=== PATIENT | male | born 1985 | race Caucasian/White ===

== ENCOUNTER 2017-08-28 09:07 | Emergency (ER) ==
[2017-08-28 09:10] VITALS: BP 146/88; TEMP 99.6; BMI 38.5
--- NOTE | 2017-08-28 09:58 | ED.PDOC ---
General ED Provider: Dr. ADRY MARTIN Chief Complaint: Sore Throat Stated Complaint: Sore Throat. Hx. PATIENT STATES THAT FRIDAY EVENING HE DEVELOPED A SORE THROAT WELL A COUGH. PATIENT STATES THAT SINCE THAT THEN HE FEELS IF HIS THROAT HAS BECOME PROGRESSIVELY WORSENED AND MORE SORE. STATED HE AWAKENED THIS MORNING WITH A CHANGE IN VOICE. HE STATED HE HAS NOT TAKEN MEDICATION FOR SYMPTOMS THIS MORNING. Time Seen by Physician: 10:00 Mode of Arrival: Walk-In Information Source: Patient Exam Limitations: No limitations Nursing and Triage Documentation Reviewed and Agree: Yes Reviewed sepsis parameters & appropriate labs ordered?: Yes System Inflammatory Response Syndrome: Not Applicable Sepsis Protocol: For patient's 13 years and over: Temp is 96.8 and below OR 101 and greater Pulse >90 BPM Resp >20/minute Acutely Altered Mental Status Are patient's symptoms suggestive of a new infection, such as: -Pneumonia -Skin, Soft Tissue -Endocarditis -UTI -Bone, Joint Infection -Implantable Device -Acute Abdominal Infection -Wound Infection -Meningitis -Blood Stream Catheter Infection -Unknown System Inflammatory Response Syndrome: Not Applicable Review of Systems - Review Of Systems Constitutional: Reports: Loss of appetite Eyes: Reports: No symptoms Ears, Nose, Mouth, Throat: Reports: Throat pain, Throat swelling Respiratory: Reports: No symptoms Cardiac: Reports: No symptoms GI: Reports: No symptoms : Reports: No symptoms Musculoskeletal: Reports: No symptoms Skin: Reports: No symptoms Neurological: Reports: No symptoms Endocrine: Reports: No symptoms Hematologic/Lymphatic: Reports: No symptoms All Other Systems: Reviewed and Negative Past Medical History - Past Medical History Previously Healthy: Yes Endocrine: Reports: None Cardiovascular: Reports: None Respiratory: Reports: Asthma, Other (+strep throat and swelling) Hematological: Reports: None Gastrointestinal: Reports: None Genitourinary: Reports: None Neuro/Psych: Reports: Depression Musculoskeletal: Reports: None Cancer: Reports: None - Surgical History General Surgical History: Reports: Orthopedic - Family History Family History: Reports: Unknown - Social History Smoking Status: Never smoker Hx Substance Use: No Alcohol Screening: Occasionally - Immunizations Tetanus Shot up to Date: No Physical Exam - Physical Exam Appearance: Ill-appearing, Obese Ill-appearing: Moderate Pain Distress: Moderate Eyes: MADHAV, EOMI, Conjunctiva clear ENT: Ears normal, Nose normal, Erythema (mucoid post nasal discharge) Neck: Supple Respiratory: Airway patent, Breath sounds clear Cardiovascular: RRR, Pulses normal, No rub, No murmur GI/: Soft, Nontender, No masses, Bowel sounds normal Musculoskeletal: Normal strength, ROM intact, No edema Skin: Warm, Dry, Normal color Neurological: Sensation intact, Motor intact, Cranial nerves intact, Alert, Oriented Psychiatric: Affect appropriate, Mood appropriate Re-Evaluation - Re-Evaluation Time of Re-Evaluation: 11:30 Status: Improved Vital Signs Stable: Yes Skin: Warm and Dry Neuro: Alert and Oriented X3 CV: RRR Critical Care Note - Critical Care Note Total Time (mins): 0 Course - Course Vital Signs: Temp Pulse Resp BP Pulse Ox 08/28/17 09:08 99.6 F 92 H 20 146/88 H 95 Departure - Departure Time of Disposition: 11:45 Disposition: HOME SELF-CARE Discharge Problem: Acute streptococcal pharyngitis Instructions: Strep Throat (ED) Condition: Good Pt referred to PMD for follow-up: Yes (1 week) IPMP verified?: No Additional Instructions: Remain well hydrated, take all meds and return if symptoms worsen Allergies/Adverse Reactions: Allergies No Known Allergies Allergy (Unverified 08/28/17 09:10) Home Medications: Ambulatory Orders Penicillin V Potassium [Penicillin Vk Tab] 500 mg PO Q6HR #40 tablet 08/28/17 Disposition Discussed With: Patient, Family
[2017-08-28] MEDS: DECADRON 4 MG/ML SDV IM STA (11:11)
== END 2017-08-28 12:06 | disposition home or self-care (01) ==
LOC: ED 09:07
DX: J02.0 Streptococcal pharyngitis (principal)
CPT/HCPCS: 87502; 87651; 96372; 99282; 99283